=== PATIENT | female | born 1960 | race Caucasian/White ===

== ENCOUNTER 2024-12-10 08:03 | Outpatient (CLI) | payer MEDICARE, OTHER | END 2024-12-10 08:04 | disposition home or self-care (01) | LOC: BICRAD 08:03 | PROVIDERS: ATTEND Internal Medicine | DX: M21.962 Unspecified acquired deformity of left lower leg (principal); M17.12 Unilateral primary osteoarthritis, left knee ==

== ENCOUNTER 2024-12-15 14:12 | Outpatient (CLI) | payer MEDICARE, OTHER | END 2024-12-15 14:13 | disposition home or self-care (01) | LOC: BICMAMMO 14:12 | PROVIDERS: ATTEND Internal Medicine | DX: Z12.31 Encounter for screening mammogram for malignant neoplasm of breast (principal) | CPT/HCPCS: 36415; 77063; 77067; 80048; 85025 ==